=== PATIENT | male | born 1995 | race American Indian/Alaskan Native ===

== ENCOUNTER 2016-09-06 11:04 | Emergency (ER) | payer OTHER ==
[2016-09-06] MEDS ORDERED: BOOSTRIX IM ONE ×2 (11:36→13:59)
[2016-09-06 11:38] VITALS: BP 139/84
--- NOTE | 2016-09-06 13:13 | XRay Report ---
LEFT INDEX FINGER: History: Pain, puncture wound. The bony architecture is intact. Bony alignment is normal. No soft tissue abnormalities are seen. The joint spaces appear preserved. IMPRESSION: Normal left index finger.
--- NOTE | 2016-09-06 14:17 | Emergency Department Report ---
Entered by MARCY CARRILLO, acting as scribe for YANG ADHIKARI NP. Stated Complaint: STAPLE WAS IN LEFT INDEX FINGER Time Seen by Provider: 09/06/16 11:35 - HPI History of Present Illness: Pt is a 21 y.o. male who presents to ED for evaluation of two day history of progressively improving pain and numbness localized to wound at second finger of left hand. Pt states that he sustained the wound yesterday when he had to remove a staple from his finger at work. Patient states that his pain was initially a 10/10, but has improved to a 4/10. He does not report fever or chills. - ROS Review of Systems: Positive for pain and numbness localized to wound at second digit of left hand. Negative for fever or chills. - Exam Vital Signs: Vital Signs 09/06/16 11:36 Temperature 97.7 F Pulse Rate 61 Respiratory 18 Rate Blood Pressure 139/84 O2 Sat by Pulse 100 Oximetry Physical Exam: Physical Exam: Head: Normocephalic, atraumatic Mouth: Moist, no pharyngeal exudate or erythema. Uvula is midline and oral airway is patent. No facial swelling. No peritonsillar abscesses. Nose: Normal external appearance, no drainage. Maxillary and frontal sinuses nontender to palpation Neck: Supple, no C-spine tenderness, no tracheal deviation. Nontender to palpation. no adenopathy Ears: Bilateral TMs ar without any redness, swelling, or drainage. Bilateral EAC without any redness, swelling, or drainage. Abdomen: Soft, nontender to palpation in all quadrants, normal bowel sounds in all quadrants and negative CVA tenderness bilaterally. Eyes: Bilateral pupils equal and reactive to light, bilateral EOM intact. Bilateral sclera and conjunctiva without injection. Normal accommodation. Lungs: Clear to auscultation bilaterally, no rhonchi, wheezes, or rales. Normal work of breathing. No use of accessory muscles Extremities: No CCE. +2 pulses. No neurovascular compromise Cardiovascular: S1-S2, regular rate, regular rhythm. No murmurs. Skin: Two puncture wounds to left fingertip. No drainage, cellulitis, or induration. 2+ radial pulses. Psych: Normal mood and behavior MSE screening note: Focused history and physical exam performed. Due to findings the following was ordered: Orders: tetanus shot and left finger x-rays. ED Medical Decision Making - Radiology Data Radiology results: report reviewed xr finger - no fb - Medical Decision Making PT's td updated - Differential Diagnosis fb, puncture wound ED Disposition for MSE Clinical Impression: Need for Tdap vaccination Puncture wound of finger of left hand Qualifiers: Encounter type: initial encounter Qualified Code(s): S61.239A - Puncture wound without foreign body of unspecified finger without damage to nail, initial encounter Disposition: TO HOME OR SELFCARE Is pt being admited?: No Does the pt Need Aspirin: No Condition: Stable Instructions: Puncture Wound (ED) Additional Instructions: Return to the ED if your finger begins to swelling, turn red, had drainage, or you have an increase in pain Finish all antibiotics No driving or alcohol after taking Tylenol #3 if you need to take it to manage your pain Prescriptions: Acetaminophen/Codeine [Tylenol #3] 1 tab PO Q6H PRN #7 tab PRN Reason: Pain , Severe (7-10) Cephalexin [Keflex] 500 mg PO Q6HR #28 capsule Ibuprofen [Motrin] 600 mg PO Q8H PRN #15 tablet PRN Reason: Pain Referrals: [facility] [Outside] - 3-5 Days MILAN CATALAN MD [Referring] - 3-5 Days PRIMARY CAREMD [Primary Care Provider] - 3-5 Days Forms: Work/School Release Form(ED) Time of Disposition: 14:16 This documentation as recorded by the GERARDO garcia KELLY,accurately reflects the service I personally performed and the decisions made by me,YANG ADHIKARI , MICHELET.
== END 2016-09-06 14:16 | disposition home or self-care (01) ==
LOC: ED 11:04
DX: S61.231A Puncture wound without foreign body of left index finger without damage to nail, initial encounter (principal); W26.8XXA Contact with other sharp object(s), not elsewhere classified, initial encounter; Y93.89 Activity, other specified; Y99.8 Other external cause status; Y92.89 Other specified places as the place of occurrence of the external cause
CPT/HCPCS: 90471; 90715